=== PATIENT | female | born 1990 | race American Indian/Alaskan Native ===

== ENCOUNTER 2019-07-04 06:00 | Day surgery (SDC) | payer MEDICAID ==
[~2019-07-04 06:00] MED LIST: CELECOXIB 200 MG CAP PO NR; GABAPENTIN 300 MG CAP PO NR; LACTATED RINGERS 1,000 ML IV SCH; MIDAZOLAM 2 MG/2 ML INJ IV NR; SCOPOLAMINE TRANSDERMAL PATCH 72 HR TD NR
[2019-07-04] MEDS ORDERED: BACTERIOSTATIC SODIUM CHLORIDE 0.9% 30 ML VIAL INFILTRATI ONE (06:41)
--- NOTE | 2019-07-04 07:20 | Short Stay Summary ---
Short Stay Documentation Date of service: 07/04/19 Narrative H&P: 28y/o with acute pelvic pain. The patient reports recurrent right lower quadrant pain that has not subsided. The patient also complains of dysfunctional uterine bleeding. She is currently attempting medical management to improve her vaginal bleeding. The patient is scheduled to undergo a diagnostic laparoscopy for evaluation of her pain. - History Principal diagnosis: acute pelvic pain Past Medical History: other (uterine fibroids) Past Surgical History: Other (tubal ligation) Social history: single - Allergies and Medications Current Medications: Allergies SILK TAPE Adverse Reaction (Uncoded 07/04/19 07:09) SCARRING OF SKIN Home Medications Medication Instructions Recorded Confirmed Last Taken Type No Known Home Medications [No 06/29/19 06/29/19 Unknown History Reported Home Medications] Active Medications Celecoxib (Celebrex) 200 mg PO PREOP NR Stop: 07/04/19 23:01 Last Admin: 07/04/19 07:05 Dose: 200 mg Documented by: Gabapentin (Gabapentin) 300 mg PO PREOP NR Stop: 07/04/19 23:00 Last Admin: 07/04/19 07:05 Dose: 300 mg Documented by: Lactated Ringer's (Lactated Ringers) 1,000 mls @ 100 mls/hr IV DIRECT ARTHUR Last Admin: 07/04/19 06:55 Dose: 100 mls/hr Documented by: Midazolam HCl (Versed) 2 mg IV PREOP NR Stop: 07/04/19 23:01 Scopolamine (Transderm-Scop) 1 each TD PREOP NR Stop: 07/04/19 23:00 Last Admin: 07/04/19 06:44 Dose: 1 each Documented by: - Physical exam General appearance: no acute distress Integumentary: no rash HEENT: Atraumatic Lungs: Clear to auscultation Breasts: deferred Heart: Regular rate Gastrointestinal: normal Female Genitourinary: deferred Rectal Exam: deferred Extremities: no ischemia - Brief post op/procedure progress note Date of procedure: 07/04/19 Pre-op diagnosis: Acute pelvic pain Post-op diagnosis: same Procedure: diagnostic laparoscopy right ovarian cystotomy Anesthesia: GETA Surgeon: RUBEN VU Estimated blood loss: minimal Pathology: list (ovarian cyst fluid) Specimen disposition: to lab Condition: stable - Hospital course Hospital course: The patient was admitted the day of surgery and underwent a laparoscopy. Please see operative note for details of surgery. Postoperative course was uneventful. - Disposition Condition at discharge: Good Disposition: DC-01 TO HOME OR SELFCARE Short Stay Discharge Plan Activity: other (pelvic rest for 1 week) Diet: regular Additional Instructions: REMOVE SCOPALAMINE PATCH IN 3 DAYS. WASH YOUR HANDS AFTER REMOVING PATCH. Scheduled follow-up with Dr. Carballo in 2 weeks Prescriptions: Ibuprofen [Motrin] 800 mg PO Q8HR PRN #60 tablet PRN Reason: Pain, Mild (1-3) HYDROcodone/APAP 5-325 [[place] 5/325] 1 each PO Q6HR PRN #20 tablet PRN Reason: Pain
[2019-07-04] MEDS ORDERED: BUPIVACAINE/PF (0.5%) 5 MG/1 ML 30 ML VIAL INFILTRATI ONE ×2 (07:21→08:14)
--- NOTE | 2019-07-04 07:24 | Anesthesia Consultation ---
Anesthesia Consult and Med Hx Date of service: 07/04/19 - Airway Anesthetic Teeth Evaluation: Good ROM Head & Neck: Adequate Mental/Hyoid Distance: Adequate Mallampati Class: Class I Intubation Access Assessment: Good - Pulmonary Exam CTA: Yes - Cardiac Exam Cardiac Exam: RRR - Pre-Operative Health Status ASA Pre-Surgery Classification: ASA1 Proposed Anesthetic Plan: General - Pulmonary Hx Smoking: No Hx Respiratory Symptoms: No - Cardiovascular System Hx Hypertension: No Hx Heart Attack/AMI: No - Central Nervous System Hx Seizures: No CVA: No Hx Psychiatric Problems: No - Gastrointestinal Hx Gastroesophageal Reflux Disease: No - Endocrine Hx Renal Disease: No Hx Liver Disease: No Hx Insulin Dependent Diabetes: No Hx Non-Insulin Dependent Diabetes: No Hx Thyroid Disease: No - Other Systems Hx Obesity: No - Additional Comments Anesthesia Medical History Comments: No hx anesthetic complications.
--- NOTE | 2019-07-04 07:25 | Anesthesia Day of Surgery ---
Anesthesia Day of Surgery - Day of Surgery Patient Examined: Yes Patient H&P Reviewed: Yes Patient is NPO: Yes
[2019-07-04] MEDS ORDERED: LIDOCAINE MPF (2%) 20 MG/1 ML VIAL 5 ML ONE (07:43)
[2019-07-04] MEDS ORDERED: SUCCINYLCHOLINE CHLORIDE 200 MG/10 ML INJ MDV ONE (07:43)
[2019-07-04] MEDS ORDERED: PHENYLEPHRINE/NS 1,000 MCG/10 ML SYRINGE (OR USE) IV ONE (07:43)
[2019-07-04] MEDS ORDERED: PROPOFOL 200 MG/20 ML VIAL IV ONE (07:43)
[2019-07-04] MEDS ORDERED: ONDANSETRON 4 MG/2 ML INJ ONE (07:43)
[2019-07-04] MEDS ORDERED: ROCURONIUM 50 MG/5 ML INJ IV ONE (07:43)
[2019-07-04] MEDS ORDERED: fentaNYL 100 MCG/2 ML INJ ONE ×2 (07:43→08:41)
[2019-07-04] MEDS ORDERED: dexAMETHasone 20 MG/5 ML VIAL ONE (07:43)
[2019-07-04] MEDS ORDERED: NEOSTIGMINE 10MG/10 ML INJ MDV ONE (07:43)
[2019-07-04] MEDS ORDERED: GLYCOPYRROLATE 0.4 MG/2 ML INJ ONE (07:43)
[2019-07-04] MEDS ORDERED: HYDROmorphone 1 MG/1 ML INJ IV PRN (08:00)
[2019-07-04] MEDS ORDERED: SODIUM CHLORIDE 0.9% IRR 1,000 ML BOTTLE IR ONE (08:14)
[2019-07-04] MEDS ORDERED: SUGAMMADEX SODIUM 200 MG/2 ML VIAL IV ONE (08:24)
[2019-07-04] MEDS ORDERED: HYDROmorphone 1 MG/1 ML INJ ONE (08:36)
--- NOTE | 2019-07-04 08:49 | Operative Report ---
Operative Report Operative Report: Date of surgery: 07/04/2019 Preoperative diagnosis: Acute pelvic pain Postoperative diagnosis: Same as above Procedure: Diagnostic laparoscopy; right ovarian cystotomy Surgeon: Kareen Carballo M.D. Anesthesia: General endotracheal anesthesia Estimated blood loss: Minimal Findings: Simple right ovarian cyst measuring approximately 2 cm Pathology: Right ovarian cyst fluid Indication: 28-year-old 031 with a history of worsening pelvic pain. The patient attempted medical management without significant improvement in her symptoms and elected to undergo surgical management. Procedure: The patient was taken to the operating room and given general endotracheal anesthesia without complication. The patient is prepped and draped in a normal sterile fashion. A bivalve speculum was placed in the patient's vagina and a single-tooth tenaculum was placed on the anterior lip of the cervix .A uterine acorn manipulator was placed, and the bivalve speculum was then removed. Attention was then turned to the patient's abdomen where a 5 mm infraumbilical skin incision was then made. A Veress needle was placed and peritoneal entry was verified water-filled syringe. Insufflation of the peritoneal cavity was performed with CO2 gas. A 5 mm trocar was placed and the laparoscope was then inserted. The patient was then placed in Trendelenburg. A 5 mm suprapubic skin incision was then made. Under direct visualization a 5 mm trocar was then placed. General survey of the patient's abdomen revealed normal uterus and tubes bilaterally. The left ovary was normal in appearance the right ovary contained a small simple cysts approximately 2 cm. There was no evidence of pelvic adhesive disease or endometriotic implants. A needle was placed through the 5 mm suprapubic trocar. The right ovarian cyst was injected with the needle and aspiration of the cystic contents were removed. The cystic fluid was sent to pathology for further evaluation. The 5 mm trocar was then removed. The pneumoperitoneum was then released. The 5 mm trocar laparoscope was then removed. The skin incisions were then closed with 4-0 Monocryl. The incisions were injected with quarter percent Marcaine. Dressings were applied to the incision. The vaginal instruments were then removed atraumatically. Then successfully extubated and taken to the recovery room. All sponge laps and needle counts were correct x2.
[2019-07-04 09:44] VITALS: BP 105/65
--- NOTE | 2019-07-04 15:12 | Post Anesthesia Evaluation ---
- Post Anesthesia Evaluation Patient Participated: Yes Airway Patent: Yes Stable Respiratory Function: Yes Nausea/Vomiting: No Temp > 96.8F: Yes Pain Manageable: Yes Adequeate Hydration: Yes Anesthesia Complications: No Block Receding Appropriately: Not Applicable Patient on Ventilator: No
== END 2019-07-04 10:10 | disposition home or self-care (01) ==
LOC: OR 06:00
PROVIDERS: ATTEND Obstetrics & Gynecology
DX: R10.2 Pelvic and perineal pain (principal); N83.201 Unspecified ovarian cyst, right side; Z79.899 Other long term (current) drug therapy; Z87.440 Personal history of urinary (tract) infections; Z98.890 Other specified postprocedural states
CPT/HCPCS: 49322; 81025; 88112; J0330; J1100; J1170; J2250; J2370; J2405; J2704; J2710; J3010; J7120